=== PATIENT | male | born 1970 | race Caucasian/White ===

== ENCOUNTER 2019-04-13 07:15 | Day surgery (SDC) | payer OTHER ==
[2019-04-13] MEDS ORDERED: CEFAZOLIN 2 GM/50 ML (PMX) 50 ML IVPB (08:00)
[2019-04-13 08:09] LABS: ADD MAN DIFF? NO
[2019-04-13] MEDS: SOD CHLORIDE 0.9% 1,000 ML IV (08:09)
[2019-04-13 08:12] LABS: BASOPHILS % 0.6 % (0.0-2.0); EOSINOPHILS # 0.1 10^3/ul (0.0-0.5); EOSINOPHILS % 1.3 % (0.0-7.0); HEMATOCRIT 37.2 % (42.0-52.0); HEMOGLOBIN 12.9 g/dl (14.0-18.0); LYMPHOCYTES # 1.6 10^3/ul (0.8-2.9); LYMPHOCYTES % 33.1 % (15.0-51.0); MEAN CORPUSCULAR HGB CONC 34.7 g/dl (32.0-37.0); MEAN CORPUSCULAR VOLUME 86.5 fl (82.0-101.0); MEAN PLATELET VOLUME 9.4 fl (7.4-10.4); MONOCYTE # 0.4 10^3/ul (0.3-0.9); NEUTROPHIL # 2.7 10^3/ul (1.6-7.5); NEUTROPHILS % 56.8 % (39.0-77.0); PLATELET COUNT 197 10^3/UL (140-415); RED CELL DISTRIBUTION WIDTH 12.7 % (11.5-14.5)
[2019-04-13 08:12] LABS: WHITE BLOOD COUNT 4.7 10^3/ul (4.8-10.8)
[2019-04-13 08:27] LABS: INR 0.97; PARTIAL THROMBOPLASTIN TIME 34.3 Sec (23.0-35.0)
[2019-04-13 08:29] LABS: ALANINE AMINOTRANSFERASE 25 IU/L (13-69); ALBUMIN 4.3 g/dl (3.3-4.9); ALBUMIN/GLOBULIN RATIO 1.22; ALKALINE PHOSPHATASE 44 IU/L (42-121); ANION GAP 10 (5-13); ASPARTATE AMINO TRANSFERASE 29 IU/L (15-46); BILIRUBIN,INDIRECT 1.4 mg/dl (0-1.1); BILIRUBIN,TOTAL 1.4 mg/dl (0.2-1.3); BLOOD UREA NITROGEN 20 mg/dl (7-20); CALCIUM 9.1 mg/dl (8.4-10.2); CARBON DIOXIDE 24 mmol/L (21-31); CHLORIDE 107 mmol/L (97-110); CREATININE 0.87 mg/dl (0.61-1.24); Estimated GFR > 60 mL/min (>60); GLUCOSE 83 mg/dl (70-220); POTASSIUM 3.8 mmol/L (3.5-5.1); SODIUM 141 mmol/L (135-144); TOTAL PROTEIN 7.8 g/dl (6.1-8.1)
[2019-04-13] MEDS ORDERED: LIDOCAINE 2% (MDV) 20 ML INJ (09:39)
[2019-04-13] MEDS ORDERED: BUPIVACAINE 0.5% (SDV) 30 ML INJ (09:39)
[2019-04-13] MEDS ORDERED: DESFLURANE 15 MIN (10:30)
[2019-04-13] MEDS ORDERED: MIDAZOLAM 1 MG/ML 2 ML INJ (10:35)
[2019-04-13] MEDS ORDERED: NEOSTIGMINE 3 MG/3 ML SYRINGE (10:35)
[2019-04-13] MEDS ORDERED: CEFAZOLIN 1 GM INJ (10:35)
[2019-04-13] MEDS ORDERED: PROPOFOL 20 ML (10:35)
[2019-04-13] MEDS ORDERED: GLYCOPYRROLATE 0.4 MG INJ (10:35)
[2019-04-13] MEDS ORDERED: ROCURONIUM 50 MG INJ (10:35)
[2019-04-13] MEDS ORDERED: DEXAMETHASONE 4 MG/ML 5 ML INJ (10:36)
[2019-04-13] MEDS ORDERED: FENTAnyl 50 MCG/ML VIAL (10:36)
[2019-04-13] MEDS ORDERED: ONDANSETRON 4 MG INJ (10:36)
[2019-04-13] MEDS ORDERED: TRIMETHOBENZAMIDE 100 MG/ML VIAL IM (11:00)
[2019-04-13] MEDS ORDERED: MIDAZOLAM 1 MG/ML 2 ML INJ IV (11:00)
[2019-04-13] MEDS ORDERED: EPHEDrine 25 MG/5 ML SYG IV (11:00)
[2019-04-13] MEDS ORDERED: MEPERIDINE 25 MG INJ IV (11:00)
[2019-04-13] MEDS ORDERED: HYDROmorphONE 1 MG/5 ML IV SYRINGE IV ×3 (11:00)
[2019-04-13] MEDS ORDERED: IPRATROPIUM (NEB) 0.5 MG/2.5 ML AMP HHN (11:00)
[2019-04-13] MEDS ORDERED: ONDANSETRON 4 MG INJ IV (11:00)
[2019-04-13] MEDS ORDERED: FENTAnyl 50 MCG/ML VIAL IV ×3 (11:00)
[2019-04-13] MEDS ORDERED: hydrALAzine 20 MG INJ IV (11:00)
[2019-04-13] MEDS ORDERED: ALBUTEROL 0.083% (NEB) 2.5 MG/3 ML AMP HHN (11:00)
[2019-04-13] MEDS ORDERED: DIPHENHYDRAMINE 50 MG INJ IV (11:00)
[2019-04-13] MEDS ORDERED: OXYCODONE/ACETAMINOPHEN (5/325) TAB PO ×2 (11:00)
[2019-04-13] MEDS ORDERED: LABETALOL HCL 20MG INJ IV (11:00)
[2019-04-13] MEDS: BUPIVACAINE 0.25% (MPF) 30 ML INJ INJ (11:23)
[2019-04-13] MEDS ORDERED: HYDROCODONE/APAP (5/325) TAB PO (11:30)
== END 2019-04-13 13:20 | disposition home or self-care (01) ==
LOC: SDS 07:15
DX: M67.432 Ganglion, left wrist (principal)
CPT/HCPCS: 25111; 80053; 85025; 85610; 85730; 88304